=== PATIENT | female | born 1995 | race Caucasian/White ===

== ENCOUNTER 2017-03-02 23:18 | Emergency (ER) | payer MEDICAID ==
[~2017-03-02] VITALS: Ht 162.6 cm; Wt 61.0 kg
[~2017-03-02 23:18] MED LIST: CARB200T PO; CITA10SO PO; LEVE500T19 PO; LORA10TA7 PO
[2017-03-03] MEDS ORDERED: LEVETIRACETAM 500MG PREMIX 100 ML IV ONE (00:30)
[2017-03-03] MEDS ORDERED: LORAZEPAM 2MG/ML CPJ IV ONE (00:30)
[2017-03-03 03:16] VITALS: BP 96/67
== END 2017-03-03 03:30 | disposition home or self-care (01) ==
LOC: ER 23:18
DX: R56.9 Unspecified convulsions (principal); Z98.890 Other specified postprocedural states
CPT/HCPCS: 96365; 96375; 99284; J1953; J2060; Z7610

== ENCOUNTER 2018-01-28 22:28 | Emergency (ER) | payer MEDICAID ==
[~2018-01-28] VITALS: Ht 152.4 cm; Wt 50.0 kg
[2018-01-29] MEDS ORDERED: ACETAMINOPHEN 500MG TABLET PO ONE (01:45)
[2018-01-29 03:46] VITALS: BP 110/64
== END 2018-01-29 03:49 | disposition home or self-care (01) ==
LOC: ER 22:28
DX: R56.9 Unspecified convulsions (principal); F91.8 Other conduct disorders; F41.9 Anxiety disorder, unspecified; J45.909 Unspecified asthma, uncomplicated
CPT/HCPCS: 70450; 81025; 99284

== ENCOUNTER 2021-07-18 22:17 | Inpatient (IN) | payer MEDICAID ==
[~2021-07-18] VITALS: Ht 162.6 cm; Wt 65.3 kg
[2021-07-18] MEDS ORDERED: SODIUM CHLORIDE 0.9% 1,000 ML IV ONE (23:15)
[2021-07-18 23:55] LABS: BASOPHILS % 0.1 % (0.0-2.0); EOSINOPHILS % 0.1 % (0.0-5.0); HEMATOCRIT. 42.8 % (36.0-48.0); HEMOGLOBIN. 14.8 g/dL (12.0-16.0); LYMPHOCYTES % 8.3 % (20.0-50.0); MEAN CORPUSCULAR HEMOGLOBIN 31.8 pg (28.0-32.0); MEAN CORPUSCULAR VOLUME 91.7 fL (81.0-99.0); MEAN PLATELET VOLUME 8.6 fl (7.4-10.4); MONOCYTES % 4.5 % (2.0-8.0); PLATELET 282 x1000/uL (130-400); RED BLOOD CELL COUNT 4.66 mill/uL (4.2-5.4); RED CELL DISTRIBUTION WIDTH 12.9 % (11.6-14.6)
[2021-07-19 00:07] LABS: CHLORIDE 108 mEq/L (98-107)
[2021-07-19 00:13] LABS: HCG SCREEN NEGATIVE
[2021-07-19] MEDS ORDERED: LEVETIRACETAM 500MG PREMIX 100 ML IV ONE (01:45)
[2021-07-19] MEDS ORDERED: LORAZEPAM 2MG/ML CPJ IV ONE (01:45)
[2021-07-19 03:05] LABS: CLARITY URINE CLEAR (CLEAR); COLOR URINE YELLOW (YELLOW); KETONES URINE 1+ (NEGATIVE); LEUKOCYTE ESTERASE URINE NEGATIVE (NEGATIVE); NITRITE URINE NEGATIVE (NEGATIVE); OCCULT BLOOD URINE NEGATIVE (NEGATIVE); PH URINE 6.5 (4.5-8.0); PROTEIN URINE 1+ (NEGATIVE); SPECIFIC GRAVITY URINE 1.025 (1.005-1.030)
[2021-07-19] MEDS ORDERED: PHEN100C12 PO (21:43)
[2021-07-19] MEDS ORDERED: ESCI-7 PO (21:43)
[2021-07-19] MEDS ORDERED: LAM1 MT (21:43)
[2021-07-19] MEDS ORDERED: ACETAMINOPHEN 325MG TABLET PO PRN ×2 (21:45)
[2021-07-19] MEDS ORDERED: DIPHENHYDRAMINE 50MG/ML VIAL IV PRN (21:45)
[2021-07-19] MEDS ORDERED: LORAZEPAM 2MG/ML CPJ IV PRN (21:45)
[2021-07-19] MEDS ORDERED: MAGNESIUM/ALUMINUM HYDROXIDE/SIMETHICONE 30ML UDC PO PRN (21:45)
[2021-07-19 23:00] VITALS: BP 124/71
[2021-07-19] MEDS: LEVETIRACETAM 1,000 MG in SODIUM CHLORIDE 0.9% 100 ML IV SCH (23:17)
[2021-07-19] MEDS: SODIUM CHLORIDE 0.9% INJ 3ML FLUSH IVF SCH (23:39)
[2021-07-20] VITALS: BP 125/92
[2021-07-20] MEDS: ONDANSETRON HCL 4MG/2ML INJ IV PRN ×2 (00:56→11:21)
[2021-07-20 04:00] VITALS: BP 96/60
[2021-07-20] MEDS: SODIUM CHLORIDE 0.9% INJ 3ML FLUSH IVF SCH ×3 (06:57→21:31)
[2021-07-20 08:00] VITALS: BP 105/68
[2021-07-20] MEDS: CARBAMAZEPINE 100MG TABLET CHEW PO SCH ×2 (11:20→17:33)
[2021-07-20] MEDS: LEVETIRACETAM 1,000 MG in SODIUM CHLORIDE 0.9% 100 ML IV SCH ×2 (11:21→22:11)
[2021-07-20 12:00] VITALS: BP 107/77
[2021-07-20 16:00] VITALS: BP 119/53
[2021-07-20 20:00] VITALS: BP 103/59
[2021-07-21] VITALS: BP 129/72
[2021-07-21 04:00] VITALS: BP 113/71
[2021-07-21] MEDS: SODIUM CHLORIDE 0.9% INJ 3ML FLUSH IVF SCH ×2 (05:47→14:00)
[2021-07-21 08:00] VITALS: BP 116/77
[2021-07-21] MEDS: CARBAMAZEPINE 100MG TABLET CHEW PO SCH (10:19)
[2021-07-21] MEDS: LEVETIRACETAM 1,000 MG in SODIUM CHLORIDE 0.9% 100 ML IV SCH (11:09)
[2021-07-21 12:00] VITALS: BP 106/70
[2021-07-21 13:36] VITALS: BP 106/70
== END 2021-07-21 14:50 | disposition home or self-care (01) | DRG 53 ==
LOC: ER 22:17 → 8WST 07-19 02:14 → ENRESERV 07-19 19:13
PROVIDERS: ADMIT Internal Medicine; ATTEND Internal Medicine
DX: G40.909 Epilepsy, unspecified, not intractable, without status epilepticus (principal); R62.50 Unspecified lack of expected normal physiological development in childhood; Z20.822 Contact with and (suspected) exposure to COVID-19; Z79.899 Other long term (current) drug therapy
CPT/HCPCS: 36415; 80053; 80156; 81003; 84703; 85025; 87426; 93005; 96361; 96365; 96375; 99291; J1953; J2060; J2405; J7030; J7040; J7050

== ENCOUNTER 2022-04-10 08:36 | Inpatient (IN) | payer MEDICAID, OTHER ==
[~2022-04-10] VITALS: Ht 162.6 cm; Wt 70.3 kg
[~2022-04-10 08:36] MED LIST changes: -CITA10SO PO; +ESCI-7 PO; +LAM1 MT; -LORA10TA7 PO; +PHEN100C12 PO
[2022-04-10] MEDS ORDERED: LORAZEPAM 2MG/ML CPJ ONE (09:56)
[2022-04-10] MEDS ORDERED: LEVETIRACETAM 500MG PREMIX 100 ML IV ONE (10:15)
[2022-04-10 11:35] LABS: BASOPHILS % 0.5 % (0.0-2.0); CHLORIDE 107 mEq/L (98-107); EOSINOPHILS % 2.6 % (0.0-5.0); HEMATOCRIT. 43.5 % (36.0-48.0); HEMOGLOBIN. 14.7 g/dL (12.0-16.0); LYMPHOCYTES % 31.2 % (20.0-50.0); MEAN CORPUSCULAR HEMOGLOBIN 31.8 pg (28.0-32.0); MEAN CORPUSCULAR VOLUME 94.3 fL (81.0-99.0); MEAN PLATELET VOLUME 9.4 fl (7.4-10.4); NEUTROPHILS % 59.7 % (40.0-76.0); PLATELET 173 x1000/uL (130-400); RED BLOOD CELL COUNT 4.61 mill/uL (4.2-5.4); RED CELL DISTRIBUTION WIDTH 13.5 % (11.6-14.6)
[2022-04-10] MEDS ORDERED: AMOXICILLIN/POTASSIUM CLAVULANATE 875/125MG TAB PO ONE (13:00)
[2022-04-10] MEDS ORDERED: SODIUM CHLORIDE 0.9% 1,000 ML IV ONE (13:15)
[2022-04-11] VITALS (7 sets, daily range): BP systolic 96–113; BP diastolic 56–76
[2022-04-11] MEDS ORDERED: IPRATROPIUM/ALBUTEROL 0.5-3(2.5)MG/3ML NEB HHN PRN (10:00)
[2022-04-11] MEDS ORDERED: DIPHENHYDRAMINE 50MG/ML VIAL IV PRN (10:00)
[2022-04-11] MEDS ORDERED: LORAZEPAM 2MG/ML CPJ IV PRN (10:00)
[2022-04-11] MEDS ORDERED: CLONIDINE 0.1MG TABLET PO PRN (10:00)
[2022-04-11] MEDS: LEVETIRACETAM 500MG PREMIX 100 ML IV SCH ×2 (12:24→22:32)
[2022-04-12 03:21] VITALS: BP 120/80
[2022-04-12 06:41] LABS: BASOPHILS % 0.5 % (0.0-2.0); EOSINOPHILS % 2.7 % (0.0-5.0); HEMATOCRIT. 40.7 % (36.0-48.0); HEMOGLOBIN. 13.9 g/dL (12.0-16.0); LYMPHOCYTES % 35.8 % (20.0-50.0); MEAN CORPUSCULAR HEMOGLOBIN 31.7 pg (28.0-32.0); MEAN PLATELET VOLUME 8.9 fl (7.4-10.4); MONOCYTES % 8.4 % (2.0-8.0); NEUTROPHILS % 52.6 % (40.0-76.0); PLATELET 239 x1000/uL (130-400); RED BLOOD CELL COUNT 4.37 mill/uL (4.2-5.4); RED CELL DISTRIBUTION WIDTH 13.1 % (11.6-14.6)
[2022-04-12 07:52] LABS: CHLORIDE 106 mEq/L (98-107)
[2022-04-12 08:00] VITALS: BP 129/81
[2022-04-12] MEDS: LEVETIRACETAM 500MG PREMIX 100 ML IV SCH (08:03)
[2022-04-12] MEDS: ACETAMINOPHEN 325MG TABLET PO PRN (11:18)
[2022-04-12 12:00] VITALS: BP 117/72
[2022-04-12 16:00] VITALS: BP 119/61
[2022-04-12] MEDS: PHENYTOIN SODIUM EXTENDED 100MG CAPSULE PO SCH (18:15)
[2022-04-12] MEDS: CARBAMAZEPINE 200MG TABLET PO SCH (18:15)
[2022-04-12] MEDS: CITALOPRAM HYDROBROMIDE 10MG TABLET PO SCH (18:15)
[2022-04-12] MEDS: LEVETIRACETAM 500MG TABLET PO SCH (18:20)
[2022-04-12] MEDS: LAMOTRIGINE 100MG TABLET PO SCH (18:21)
[2022-04-12] MEDS: ONDANSETRON HCL 4MG/2ML INJ IV PRN (19:47)
[2022-04-12 20:00] VITALS: BP 119/58
[2022-04-12 23:28] VITALS: BP 103/59
[2022-04-13] MEDS: ACETAMINOPHEN 325MG TABLET PO PRN (00:42)
[2022-04-13 03:12] VITALS: BP 105/69
[2022-04-13] MEDS: ONDANSETRON HCL 4MG/2ML INJ IV PRN ×3 (03:22→19:17)
[2022-04-13 08:00] VITALS: BP 110/74
[2022-04-13] MEDS: LEVETIRACETAM 500MG TABLET PO SCH ×2 (08:48→17:15)
[2022-04-13] MEDS: PHENYTOIN SODIUM EXTENDED 100MG CAPSULE PO SCH ×3 (08:48→17:15)
[2022-04-13] MEDS: LAMOTRIGINE 100MG TABLET PO SCH ×2 (08:48→17:15)
[2022-04-13] MEDS: CITALOPRAM HYDROBROMIDE 10MG TABLET PO SCH (08:48)
[2022-04-13] MEDS: CARBAMAZEPINE 200MG TABLET PO SCH ×2 (08:48→17:15)
[2022-04-13 12:00] VITALS: BP 111/68
[2022-04-13 16:00] VITALS: BP 104/72
[2022-04-13 18:14] LABS: CARBAMAZEPINE 3.5 ug/mL (4-12)
[2022-04-13 20:00] VITALS: BP 108/72
[2022-04-13] MEDS ORDERED: PHENYTOIN SODIUM 1,000 MG in SODIUM CHLORIDE 0.9% 100 ML IV NR (20:00)
[2022-04-14] VITALS: BP 101/61
[2022-04-14 04:00] VITALS: BP 105/69
[2022-04-14 08:00] VITALS: BP 104/61
[2022-04-14] MEDS: LAMOTRIGINE 100MG TABLET PO SCH ×2 (08:00→16:10)
[2022-04-14] MEDS: PHENYTOIN SODIUM EXTENDED 100MG CAPSULE PO SCH ×3 (08:00→16:10)
[2022-04-14] MEDS: CITALOPRAM HYDROBROMIDE 10MG TABLET PO SCH (08:00)
[2022-04-14] MEDS: LEVETIRACETAM 500MG TABLET PO SCH ×2 (08:00→16:10)
[2022-04-14] MEDS: CARBAMAZEPINE 200MG TABLET PO SCH ×2 (08:00→16:10)
[2022-04-14 11:31] VITALS: BP 114/71
[2022-04-14 15:14] VITALS: BP 119/72
[2022-04-14 15:33] VITALS: BP 119/72
[2022-04-16 13:07] LABS: LEVETIRACETAM / KEPPRA 25.8 ug/mL (10.0-40.0)
== END 2022-04-14 16:25 | disposition home or self-care (01) | DRG 53 ==
LOC: ER 08:47 → MICUSO 18:10 → EDBEDREQ 18:13 → ENRESERV 20:06 → 8WST 21:56
PROVIDERS: ADMIT Internal Medicine; ATTEND Internal Medicine
PROC: 5A1D70Z Performance of Urinary Filtration, Intermittent, Less than 6 Hours Per Day (ICD-10-PCS; principal; 2022-04-10)
DX: G40.409 Other generalized epilepsy and epileptic syndromes, not intractable, without status epilepticus (principal); Q85.1 Tuberous sclerosis; Z91.14 Patient's other noncompliance with medication regimen; Z20.822 Contact with and (suspected) exposure to COVID-19
CPT/HCPCS: 36415; 80053; 80156; 80185; 82542; 83735; 85025; 87426; 93970; 95816; 99285; C1893; J1165; J1953; J2060; J2405; J7030; J7050

== ENCOUNTER 2024-10-08 19:55 | Emergency (ER) | payer OTHER ==
[~2024-10-08] VITALS: Ht 160 cm; Wt 66.0 kg
[2024-10-08 20:06] VITALS: TEMP 36.7; O2SAT 99
[2024-10-08 20:42] LABS: BASOPHILS % 0.2 % (0.0-2.0); EOSINOPHILS % 1.9 % (0.0-5.0); HEMOGLOBIN. 13.2 g/dL (12.0-16.0); LYMPHOCYTES % 17.5 % (20.0-50.0); MEAN CORPUSCULAR HEMOGLOBIN 31.1 pg (28.0-32.0); MEAN CORPUSCULAR HGB CONC 33.7 g/dL (31.0-37.0); MEAN CORPUSCULAR VOLUME 92.2 fL (81.0-99.0); MONOCYTES % 5.3 % (2.0-8.0); NEUTROPHILS % 75.1 % (40.0-76.0); PLATELET 287 x1000/uL (130-400); RED BLOOD CELL COUNT 4.23 mill/uL (4.2-5.4); RED CELL DISTRIBUTION WIDTH 13.2 % (11.6-14.6); WHITE BLOOD COUNT 8.8 x1000/uL (4.5-11.0)
[2024-10-08 20:46] LABS: CHLORIDE 106 mEq/L (98-107); POTASSIUM 3.5 mEq/L (3.5-5.1); SODIUM 139 mEq/L (136-145)
[2024-10-08 20:47] LABS: CARBON DIOXIDE 28 mEq/L (21-32)
[2024-10-08 20:48] LABS: CALCIUM 9.4 mg/dL (8.7-10.4)
[2024-10-08 20:52] LABS: CREATININE 0.4 mg/dL (0.6-1.0)
[2024-10-08 20:53] LABS: ETHANOL BLOOD < 10 mg/dL (<10); GLUCOSE 98 mg/dL (70-105); UREA NITROGEN BLOOD 6 mg/dL (9-23)
[2024-10-08 21:01] LABS: HCG SCREEN NEGATIVE
[2024-10-08] MEDS: LEVETIRACETAM 1000MG PREMIX 100 ML IV ONE (21:01)
[2024-10-08 21:58] LABS: PHOSPHORUS 1.8 mg/dL (2.5-4.9)
[2024-10-08] MEDS: POTASSIUM-SODIUM PHOSPHATE POWDER PACKET PO ONE (23:30)
[2024-10-08 23:40] VITALS: BP 109/72; PULSE 96; RESP 12
== END 2024-10-09 00:25 | disposition home or self-care (01) ==
LOC: ER 19:55
DX: R56.9 Unspecified convulsions (principal); Z79.899 Other long term (current) drug therapy
CPT/HCPCS: 80048; 80320; 84703; 83735; 84100; 85025; 36415; 93005; 96365; 99291; J1953; G0480